=== PATIENT | male | born 1990 | race Caucasian/White ===

== ENCOUNTER 2016-12-17 16:01 | Emergency (ER) | payer SELFPAY ==
[~2016-12-17] VITALS: Ht 167.6 cm; Wt 73.7 kg
[~2016-12-17 16:01] MED LIST: NOHOMEMEDS
[2016-12-17 17:20] LABS: HEMATOCRIT 49.1 % (38.0-50.0); MCH 27.9 PG (29.0-34.0); MCHC 33.4 G/DL (30.0-36.0); MCV 83.5 FL (86-99); MEAN PLAT.VOLUME 9.5 uM^3 (9.0-12.4); PLATELET COUNT 261 K/uL (156-360); RBC DIS.WIDTH-CV 12.7 % (11.8-14.6); RBC DIS.WIDTH-SD 38.5 % (39-53); RED BLOOD COUNT 5.88 M/uL (4.00-5.50); WHITE BLOOD COUNT 7.8 K/uL (4.1-10.2)
[2016-12-17 17:36] LABS: CHLORIDE 103 mEq/L (99-109); SODIUM 138 mEq/L (136-147)
[2016-12-17 17:38] LABS: GLUCOSE 99 mg/dL (70-99)
[2016-12-17 17:39] LABS: ANION GAP 9 MEQ/L (2-14)
[2016-12-17 17:42] LABS: GFR ESTIMATE (CALCULATED) > 59 mL/min/; UREA NITROGEN (BUN) 13 mg/dL (9-23)
[2016-12-17 17:44] LABS: LIPASE 47 U/L (1.0-51.0); TROP-I INTERPRETATION NEGATIVE; TROPONIN-I < 0.01 ng/mL (0.0-0.30)
[2016-12-17] MEDS ORDERED: PEN-VEE K,VEET500 MG PO (18:23)
[2016-12-17 18:39] VITALS: BP 149/86
== END 2016-12-17 18:39 | disposition home or self-care (01) ==
LOC: EME 16:01
PROVIDERS: Physician Assistant Medical
DX: K04.7 Periapical abscess without sinus (principal); J02.9 Acute pharyngitis, unspecified; R07.9 Chest pain, unspecified; F17.200 Nicotine dependence, unspecified, uncomplicated; Z88.2 Allergy status to sulfonamides
CPT/HCPCS: 71020; 80048; 83690; 84484; 85027; 87651 90; 93005; 99281; 99284